=== PATIENT | male | born 1990 | race Two or more races ===

== ENCOUNTER 2018-12-02 20:26 | Emergency (ER) | payer SELFPAY ==
[~2018-12-02] VITALS: Ht 165.1 cm; Wt 77.1 kg
[2018-12-02 21:06] VITALS: BP 136/76
[2018-12-02] MEDS ORDERED: ORPH100T PO (21:18)
[2018-12-02] MEDS ORDERED: HYDR-3164 PO (21:18)
--- NOTE | 2018-12-02 21:18 | PHYS DOC ---
Past Medical History Past Medical History: No Pertinent History Past Surgical History: No Surgical History Alcohol Use: Occasionally Drug Use: None Adult General Chief Complaint Chief Complaint: MECHANICAL FALL HPI HPI Patient is a 28 year old male who presents with fell one week ago on the ice and landed on the left side pulling the arm back and pulled the pectoral muscle on the left side and now he has left pectoral and mid chest pain. Patient states it hurts with movement. Review of Systems Review of Systems Constitutional: Denies fever or chills [] Eyes: Denies change in visual acuity, redness, or eye pain [] HENT: Denies nasal congestion or sore throat [] Respiratory: Denies cough or shortness of breath [] Cardiovascular: No additional information not addressed in HPI [] GI: Denies abdominal pain, nausea, vomiting, bloody stools or diarrhea [] : Denies dysuria or hematuria [] Musculoskeletal: Denies back pain or joint pain [] Integument: Denies rash or skin lesions [] Neurologic: Denies headache, focal weakness or sensory changes [] Endocrine: Denies polyuria or polydipsia [] All other systems were reviewed and found to be within normal limits, except as documented in this note. Physical Exam Physical Exam Constitutional: Well developed, well nourished, no acute distress, non-toxic appearance. [] HENT: Normocephalic, atraumatic, bilateral external ears normal, oropharynx moist, no oral exudates, nose normal. [] Eyes: PERRLA, EOMI, conjunctiva normal, no discharge. [] Neck: Normal range of motion, no tenderness, supple, no stridor. [] Cardiovascular:Heart rate regular rhythm, no murmur [] Lungs & Thorax: Bilateral breath sounds clear to auscultation [] Abdomen: Bowel sounds normal, soft, no tenderness, no masses, no pulsatile masses. [] Skin: Warm, dry, no erythema, no rash. [] Back: No tenderness, no CVA tenderness. [] Extremities: No tenderness, no cyanosis, no clubbing, ROM intact, no edema. [] Neurologic: Alert and oriented X 3, normal motor function, normal sensory function, no focal deficits noted. [] Psychologic: Affect normal, judgement normal, mood normal. [] Current Patient Data Vital Signs Vital Signs Date Time Temp Pulse Resp B/P (MAP) Pulse Ox O2 Delivery O2 Flow Rate FiO2 12/02/18 21:06 97.9 74 16 136/76 (96) 95 Room Air 97.9 EKG EKG [] Radiology/Procedures Radiology/Procedures [] Course & Med Decision Making Course & Med Decision Making Patient is a 28 year old male who presents with fell one week ago on the ice and landed on the left side pulling the arm back and pulled the pectoral muscle on the left side and now he has left pectoral and mid chest pain. Patient states it hurts with movement. Alert and oriented. Patient is able to with a steady gait. Patient has intact range of motion in all extremities and joints. There is no bruising or swelling seen can reproduce the pain with palpation to sternal and pectoral left chest. Patient rates pain 9 out of 10. This is most likely a muscle skeletal pain. Patient is given muscle relaxer and pain medication, try ice or heat also. Patient follow-up with primary care doctor if needed. Lungs are clear to auscultation in all lobes. Patient shortness of air or chest pain other than pain he expresses with movement. Afebrile. Speaks in full clear sentences. Heart rate regular. Vital signs are within normal limits. Ambulatory with a steady gait. Dragon Disclaimer Dragon Disclaimer This electronic medical record was generated, in whole or in part, using a voice recognition dictation system. Departure Departure Impression: Primary Impression: Chest wall pain Disposition: HOME, SELF-CARE Condition: STABLE Referrals: NO PCP (PCP) Patient Instructions: Chest Wall Pain, Muscle Strain Additional Instructions: Follow-up with primary care provider. Take medications as prescribed. Try using heat or ice to help with her pain. Scripts Hydrocodone/Apap 5-325 (NORCO 5-325 TABLET) 1 Each Tablet 1 TAB PO PRN Q6HRS PRN for PAIN, #10 TAB 0 Refills Prov: JER FRANCO APRN 12/02/18 Orphenadrine Citrate (ORPHENADRINE CITRATE) 100 Mg Tablet.er 1 TAB PO BID, #10 TAB Prov: JER FRANCO APRN 12/02/18 JER FRANCO APRN Dec 02, 2018 21:18
== END 2018-12-02 21:23 | disposition home or self-care (01) ==
LOC: ER 20:26
DX: R07.89 Other chest pain (principal)
CPT/HCPCS: 99283